=== PATIENT | male | born 1990 | race Two or more races ===

== ENCOUNTER 2018-01-22 18:55 | Emergency (ER) | payer MEDICAID ==
[~2018-01-22] VITALS: Ht 182.9 cm; Wt 106.0 kg
[2018-01-22 22:50] VITALS: BP 131/68
== END 2018-01-22 22:51 | disposition home or self-care (01) ==
LOC: ER 18:55
DX: M79.1 Myalgia (principal); R51 Headache; R03.0 Elevated blood-pressure reading, without diagnosis of hypertension; V49.59XA Passenger injured in collision with other motor vehicles in traffic accident, initial encounter; Y93.89 Activity, other specified; Y92.410 Unspecified street and highway as the place of occurrence of the external cause; F12.90 Cannabis use, unspecified, uncomplicated
CPT/HCPCS: 99283; Z7610

== ENCOUNTER 2021-11-24 01:58 | Inpatient (IN) | payer SELFPAY ==
[~2021-11-24] VITALS: Ht 182.9 cm; Wt 87.5 kg
[2021-11-24] MEDS ORDERED: ONDANSETRON HCL 4MG/2ML INJ IV STA (04:27)
[2021-11-24] MEDS ORDERED: SODIUM CHLORIDE 0.9% 1,000 ML IV ONE (04:30)
[2021-11-24 05:14] LABS: BASOPHILS % 0.1 % (0.0-2.0); HEMATOCRIT. 48.4 % (42.0-52.0); HEMOGLOBIN. 16.3 g/dL (14.0-18.0); LYMPHOCYTES % 9.6 % (20.0-50.0); MEAN CORPUSCULAR VOLUME 85.8 fL (80.0-94.0); MEAN PLATELET VOLUME 10.3 fl (7.4-10.4); MONOCYTES % 8.4 % (2.0-8.0); NEUTROPHILS % 81.9 % (40.0-76.0); PLATELET 207 x1000/uL (130-400); RED BLOOD CELL COUNT 5.64 mill/uL (4.7-6.1); RED CELL DISTRIBUTION WIDTH 13.4 % (11.6-14.6)
[2021-11-24 05:22] LABS: CHLORIDE 93 mEq/L (98-107)
[2021-11-24] MEDS ORDERED: ONDANSETRON HCL 4MG/2ML INJ IV ONE (05:45)
[2021-11-24] MEDS ORDERED: KCL 20MEQ/100ML PREMIX 100 ML IV ONE (06:00)
[2021-11-24 09:07] LABS: CLARITY URINE CLEAR (CLEAR); COLOR URINE DARK YELLOW (YELLOW); KETONES URINE 2+ (NEGATIVE); LEUKOCYTE ESTERASE URINE NEGATIVE (NEGATIVE); NITRITE URINE NEGATIVE (NEGATIVE); OCCULT BLOOD URINE 1+ (NEGATIVE); PH URINE 5.5 (4.5-8.0); PROTEIN URINE 2+ (NEGATIVE); SPECIFIC GRAVITY URINE 1.031 (1.005-1.030)
[2021-11-24 12:29] VITALS: BP 147/63
[2021-11-24 12:58] VITALS: BP 147/63
[2021-11-24] MEDS ORDERED: ZOLPIDEM TARTRATE 5MG TABLET PO PRN (13:45)
[2021-11-24] MEDS ORDERED: POTASSIUM CHLORIDE INJ 40 MEQ in DEXT 5% WATER 250 ML IV ONE (13:45)
[2021-11-24] MEDS ORDERED: DIPHENHYDRAMINE 50MG/ML VIAL IV PRN (13:45)
[2021-11-24] MEDS ORDERED: ACETAMINOPHEN 325MG TABLET PO PRN ×2 (13:45)
[2021-11-24] MEDS: PANTOPRAZOLE SODIUM 40 MG/VIAL IV SCH (14:43)
[2021-11-24] MEDS: ONDANSETRON HCL 4MG/2ML INJ IV PRN (14:43)
[2021-11-24] MEDS: SODIUM CHLORIDE 0.9% 1,000 ML IV SCH (14:56)
[2021-11-24 15:48] VITALS: BP 118/54
[2021-11-24] MEDS: KCL 20MEQ/100ML X 2 FOR TOTAL KCL 40MEQ/200ML IV SCH ×2 (15:56→18:39)
[2021-11-24 20:00] VITALS: BP 141/76
[2021-11-25] VITALS: BP 139/70
[2021-11-25] MEDS: ONDANSETRON HCL 4MG/2ML INJ IV PRN ×4 (00:54→19:49)
[2021-11-25 04:00] VITALS: BP 140/68
[2021-11-25] MEDS: SODIUM CHLORIDE 0.9% 1,000 ML IV SCH ×3 (06:52→23:26)
[2021-11-25 08:00] VITALS: BP 129/70
[2021-11-25 08:01] LABS: BASOPHILS % 0.4 % (0.0-2.0); EOSINOPHILS % 0.1 % (0.0-5.0); HEMOGLOBIN. 14.3 g/dL (14.0-18.0); LYMPHOCYTES % 16.9 % (20.0-50.0); MEAN CORPUSCULAR HEMOGLOBIN 29.3 pg (28.0-32.0); MEAN CORPUSCULAR VOLUME 85.7 fL (80.0-94.0); MEAN PLATELET VOLUME 9.8 fl (7.4-10.4); MONOCYTES % 11.3 % (2.0-8.0); NEUTROPHILS % 71.3 % (40.0-76.0); PLATELET 175 x1000/uL (130-400); RED BLOOD CELL COUNT 4.89 mill/uL (4.7-6.1); RED CELL DISTRIBUTION WIDTH 13.1 % (11.6-14.6)
[2021-11-25] MEDS: PANTOPRAZOLE SODIUM 40 MG/VIAL IV SCH (08:09)
[2021-11-25 08:40] LABS: CHLORIDE 99 mEq/L (98-107); PHOSPHORUS 2.4 mg/dL (2.5-4.9)
[2021-11-25 12:00] VITALS: BP 159/88
[2021-11-25] MEDS ORDERED: POTASSIUM PHOS,M-BASIC-D-BASIC 10 MMOL in DEXT 5% WATER 246.6667 ML IV NR (13:30)
[2021-11-25 15:57] VITALS: BP 142/70
[2021-11-25 20:00] VITALS: BP 135/74
[2021-11-26] VITALS: BP 139/69
[2021-11-26 04:00] VITALS: BP 141/79
[2021-11-26] MEDS: SODIUM CHLORIDE 0.9% 1,000 ML IV SCH ×2 (07:02→14:47)
[2021-11-26] MEDS: PANTOPRAZOLE SODIUM 40 MG/VIAL IV SCH (07:58)
[2021-11-26 08:00] VITALS: BP 114/84
[2021-11-26 12:00] VITALS: BP 135/74
[2021-11-26 13:10] VITALS: BP 144/88
== END 2021-11-26 17:50 | disposition home or self-care (01) | DRG 722 ==
LOC: ER 01:58 → 7WST 06:32 → ENRESERV 10:47
PROVIDERS: ADMIT Internal Medicine; ATTEND Internal Medicine
DX: R65.10 Systemic inflammatory response syndrome (SIRS) of non-infectious origin without acute organ dysfunction (principal); N17.9 Acute kidney failure, unspecified; E83.39 Other disorders of phosphorus metabolism; K52.9 Noninfective gastroenteritis and colitis, unspecified; E87.1 Hypo-osmolality and hyponatremia; E87.6 Hypokalemia; F12.90 Cannabis use, unspecified, uncomplicated; R79.89 Other specified abnormal findings of blood chemistry; Z72.89 Other problems related to lifestyle
CPT/HCPCS: 36415; 74176; 80048; 80053; 81003; 83735; 84100; 85025; 99285; C9113; J2405; J3480; J3490; J7030; J7060